=== PATIENT | male | born 1970 | race Two or more races ===

== ENCOUNTER → 2016-10-09 | Day surgery (SDC) | payer MEDICAID ==
[~2016-10-09] MED LIST: BUPR100T4 PO; CLON0.1T PO; CYAN1TAB24; LOSA100T3 PO; OMEP40CA2 PO; PRAV10TA PO; SERT-132 PO
[2016-10-09 06:35] VITALS: BP 138/80; PULSE 64; RESP 20; TEMP 98.3; O2SAT 97
== END | disposition home or self-care (01) ==
LOC: PHSDC 06:08
PROVIDERS: ATTEND Specialist
DX: G56.02 Carpal tunnel syndrome, left upper limb (principal); R21 Rash and other nonspecific skin eruption; Z53.09 Procedure and treatment not carried out because of other contraindication
CPT/HCPCS: 99211

== ENCOUNTER → 2016-10-16 | Day surgery (SDC) | payer MEDICAID ==
[~2016-10-16] VITALS: Ht 182.9 cm; Wt 129.5 kg
[~2016-10-16] MED LIST changes: +BUPIVACAINE HCL PF 0.5% 30 ML VIAL ONE; +CHLORHEXIDINE GLUCONATE 2 % 1 PACK (2 CLOTHS) TOPICAL PRN; +DEXT 5%-NACL 0.45% 1000 ML INJ 1,000 ML IV SCH; +FAMOTIDINE 20 MG/2 ML VIAL ONE; +IBUP800T23 PO; +IBUPROFEN 800 MG TAB ONE; +INSULIN HUMAN REGULAR 1,000 UNITS/10 ML VIAL SQ PRN; +LACTATED RINGER'S 1000 ML INJ 1,000 ML ONE; +LACTATED RINGER'S 1000 ML IV PRN; +METOPROLOL TARTRATE 25 MG TAB PO PRN; +MIDAZOLAM HCL 5 MG/ML VIAL (1 ML) ONE; +NORC5TAB PO; +ONDANSETRON HCL 4 MG/2 ML VIAL IV PUSH ONE; +POVIDONE IODINE 5% (ANTISEPSIS KIT) 4 APPLICATIONS EACH NARE PRN; +PROPOFOL 200 MG/20 ML AMP IV ONE; +SODIUM CHLORID 0.9% 500 ML IV PRN; +SODIUM CHLORIDE 0.9% FLUSH 5 ML FLUSH IVF PRN; +SODIUM CHLORIDE 0.9% FLUSH 5 ML FLUSH IVF SCH; +ceFAZolin 2 GM PREMIX 50 ML IV SCH; +ceFAZolin 2 GM PREMIX 50 ML ONE
[2016-10-16 09:42] VITALS: BP 142/85; PULSE 67; RESP 16; TEMP 97.5; O2SAT 96
[2016-10-16 09:47] VITALS: PULSE 67
[2016-10-16 10:17] LABS: HEMATOCRIT 44.9 % (39.0-51.0); MEAN CELL VOLUME 89.7 FL (80.0-100.0); MEAN CORPUSCULAR HEMOGLOBIN 29.9 PG (27.0-34.0); MEAN CORPUSCULAR HGB CONC 33.3 % (32.0-36.0); PLATELET COUNT 193 TH/MM3 (150-450); RED BLOOD COUNT 5.01 MIL/MM3 (4.50-5.90); REVIEW FLAG FINAL; WHITE BLOOD COUNT 6.3 TH/MM3 (4.0-11.0)
--- NOTE | 2016-10-16 11:09 | HP.UPD ---
H&P Update Date: Oct 16, 2016 Note The Pre-Admit History and Physical Examination regarding the above named patient was reviewed (including, but not limited to, vital signs, medications, allergies, co-morbid conditions), and upon re-examination it is noted that: Indicated with "X" x - the patient's condition has not significantly changed since the last examination. [] - the patient's condition has changed since the last examination. Changes: Latonia Santana MD Oct 16, 2016 11:08
[2016-10-16 11:35] VITALS: PULSE 62
--- NOTE | 2016-10-16 14:59 | HHI.PR ---
Immediate Post Op Note Procedure Date: Oct 16, 2016 Pre Op Diagnosis: (1) SLAC (scapholunate advanced collapse) wrist (2) Carpal tunnel syndrome Post Op Diagnosis: (1) Carpal tunnel syndrome (2) SLAC (scapholunate advanced collapse) wrist Surgeon: Latonia Santana MD Deputy Fire Chief(s): Nathalia Weiner PA-C Procedure: Open release of left carpal tunnel. Four corner fusion of left wrist with autograft. Complications: n/a Specimen(s) removed: Mass of left wrist. Estimated blood loss: n/a Anesthesia: General, Regional Block Drains: None Tourniquet time (min at mmHg) 147 minutes at 250mmHg Patient to: PACU Patient Condition: Good Implant/Devices: SEE IMPLANT LOG (if applicable) Date/Time of Procedure: SEE SURGICAL CARE RECORD Wen Weiner Oct 16, 2016 14:59
[2016-10-16 15:03] VITALS: PULSE 84; TEMP 97.8
[2016-10-16 15:50] VITALS: PULSE 80
[2016-10-16 16:20] VITALS: BP 135/89; PULSE 74; RESP 16; O2SAT 95
--- NOTE | 2016-10-17 19:14 | MP ---
cc: ADIN MCNEAL MD DATE OF SURGERY 10/16/2016 PREOPERATIVE DIAGNOSIS 1. 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 2. Left carpal tunnel syndrome. POSTOPERATIVE DIAGNOSIS 1. 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 2. Left carpal tunnel syndrome. PROCEDURE 1. Excision of the left carpal scaphoid. 2. Four corner fusion of the left wrist with autograft. 3. Open release of the left carpal tunnel 4. Excision of mass ANESTHESIA General SURGEON Dr. Darcy Mcneal INDICATIONS A 45-year-old male with severe degeneration between the distal radius and the scaphoid. He also had a very tight carpal tunnel. FINDINGS The amount of loss of cartilage and arthritis between the carpal scaphoid and the distal radius was severe. The scaphoid was quite loose. The carpal tunnel was quite tight. In addition, on the ulnar side of the wrist we found a well encapsulated mass which we sent off as a specimen. TOURNIQUET TIME 147 minutes. PROCEDURE IN DETAIL The patient was seen preoperatively where the site and side were identified and marked. The patient was then taken to the operating room, placed in a supine position. His identity was checked against the arm band and the consent form, site and side confirmed, time-out called prior to beginning the procedure. The left upper extremity was prepped with Hibiclens and draped in usual sterile fashion. Just prior to that, the hair was clipped in the area of the operations on the dorsal radial aspect of the wrist. The areas to be incised were outlined with a marking pen as a curvilinear incision on the dorsal aspect of the wrist as well as a longitudinal incision in the palms to the ulnar side of the midline. The arm was exsanguinated and tourniquet inflated to 250 mmHg. Attention was first turned to the area of the carpal tunnel incision where the incision was made down through the skin down to the subcutaneous tissue. Dissection was continued down to the palmar fascia. Distally a small hole was poked in the palmar fascia and, using the ulnar artery as a guide, Guyon's canal was released. The ulnar artery and nerve were retracted ulnarly. The median nerve retracted medially and, using this flexor tendon to the ring finger as a guide, the transverse carpal ligament was divided. Once the forearm fascia was reached, the scissor was kept in a slightly open position and using the push technique divided for approximately 3 cm into the distal forearm. The median nerve was carefully from the roof of the tunnel. Once it was freed up, there was some scar tissue around it and a epidural lysis was performed under loupe magnification. The wound was then closed with a running 4-0 nylon suture. Attention was then turned to the dorsal aspect of the wrist where incision was made as noted above down through the skin down to the subcutaneous tissue. The fourth dorsal compartment was opened and the tendons were retracted exposing the capsule to the dorsal wrist. Mini C-arm was used to locate the capita lunate joint and the capsule was opened in this area. The carpa; scaphoid was then located and removed in piecemeal by the ligamentous attachments and removing the bone using the rongeur. The cancellus bone from the scaphoid was harvested and put aside to be used as autograft. Once the scaphoid was completely removed, attention was turned to the four corners where the cortical cancellus bone was carefully removed from the articulating surfaces of the capitate lunate hamate and triquetrum. an 0.062 wire was then used to reduce the lunate into a neutral position and place the capitate on top of it. Once it was in adequate position, the reamer for the 18-mm plate from the [employer] system was used. The reamer was used to create a seat for the plate and then the bone graft was placed and the plate was placed back into the wound and held in place with two K-wires. Several screws were placed, with into each bone with the position checked with a mini C-arm. Once there was adequate positioning and excellent stabilization, the area was checked. Small pins were removed leaving the four screws in place which were then tightened. Excellent stability was noted. No encumbrance of the plate and good range of motion of the wrist. The area was then copiously irrigated with saline. Capsule was closed with 4-0 Vicryl. The dermis was approximated with 4-0 Vicryl and the skin was approximated with subcuticular 4-0 Prolene. The tourniquet was then released after 147 minutes of tourniquet time. Pressure was applied. After several minutes, there was no evidence of any oozing. A dressing was applied using povidone-iodine ointment, Adaptic, Telfa, fluffy gauze hand wrap and a dorsal splint. The patient was then taken from the operating room to the recovery room in satisfactory condition having tolerated the procedure well. Postop instructions include keeping the arm elevated, keeping it clean and dry and returning next week for follow up. The patient was given an upper extremity block by anesthesia prior to the operation for postoperative pain control. Patient was given prescriptions for ibuprofen and [place]. MD SELENE Gandhi/ /3:27 PM /6:58 PM
== END | disposition home or self-care (01) ==
LOC: PHSDC 09:23
PROVIDERS: ATTEND Specialist
DX: G56.02 Carpal tunnel syndrome, left upper limb (principal); M19.032 Primary osteoarthritis, left wrist; R22.32 Localized swelling, mass and lump, left upper limb
CPT/HCPCS: 01810; 01830; 25210; 25825; 36415; 64450; 64721; 76000; 85027; 88305; C1713; J0690; J2250; J2405; J7120

== ENCOUNTER 2016-12-07 09:00 | Emergency (ER) | payer MEDICAID ==
[~2016-12-07] VITALS: Ht 182.9 cm; Wt 132.0 kg
[~2016-12-07 09:00] MED LIST changes: -BUPIVACAINE HCL PF 0.5% 30 ML VIAL ONE; -CHLORHEXIDINE GLUCONATE 2 % 1 PACK (2 CLOTHS) TOPICAL PRN; -DEXT 5%-NACL 0.45% 1000 ML INJ 1,000 ML IV SCH; -FAMOTIDINE 20 MG/2 ML VIAL ONE; -IBUP800T23 PO; -IBUPROFEN 800 MG TAB ONE; -INSULIN HUMAN REGULAR 1,000 UNITS/10 ML VIAL SQ PRN; -LACTATED RINGER'S 1000 ML INJ 1,000 ML ONE; -LACTATED RINGER'S 1000 ML IV PRN; -METOPROLOL TARTRATE 25 MG TAB PO PRN; -MIDAZOLAM HCL 5 MG/ML VIAL (1 ML) ONE; -NORC5TAB PO; -ONDANSETRON HCL 4 MG/2 ML VIAL IV PUSH ONE; -POVIDONE IODINE 5% (ANTISEPSIS KIT) 4 APPLICATIONS EACH NARE PRN; -PROPOFOL 200 MG/20 ML AMP IV ONE; -SODIUM CHLORID 0.9% 500 ML IV PRN; -SODIUM CHLORIDE 0.9% FLUSH 5 ML FLUSH IVF PRN; -SODIUM CHLORIDE 0.9% FLUSH 5 ML FLUSH IVF SCH; -ceFAZolin 2 GM PREMIX 50 ML IV SCH; -ceFAZolin 2 GM PREMIX 50 ML ONE
[2016-12-07 09:03] VITALS: BP 158/95; PULSE 72; RESP 16; TEMP 98; O2SAT 96
--- NOTE | 2016-12-07 09:20 | PD ---
HPI Chief Complaint: Skin Problem Time Seen by Provider: 09:13 Travel History International Travel<30 days: No Contact w/Intl Traveler<30days: No Traveled to known affect area: No History of Present Illness HPI This patient complains of skin rash. Duration 3 days. Symptoms severity is mild. It is located on his shoulder and anterior chest. Denies any new medications. It gives him a burning type sensation. No fever PFSH Past Medical History Cancer: No Cardiovascular Problems: No Diabetes: No Endocrine: No Genitourinary: No Hepatitis: No Hiatal Hernia: No Hypertension: Yes Immune Disorder: No Musculoskeletal: Yes (JOINT PAIN AND SWELLING; LIMITED ROM; STIFFNESS;CARPAL TUNNEL SYNDROME) Neurologic: Yes (TINGLIING BILAT HANDS) Psychiatric: Yes (ANXIETY) Reproductive: No Respiratory: Yes (SLEEP APNEA) Thyroid Disease: No Past Surgical History Abdominal Surgery: No AICD: No Body Medical Devices: ANCHORS IN RIGHT SHOULDER Cardiac Surgery: No Ear Surgery: No Endocrine Surgery: No Eye Surgery: No Genitourinary Surgery: No Gynecologic Surgery: No Joint Replacement: No Oral Surgery: No Pacemaker: No Thoracic Surgery: No Other Surgery: Yes Social History Alcohol Use: No Tobacco Use: No Substance Use: No Allergies-Medications (Allergen,Severity, Reaction): Coded Allergies: No Known Allergies (Unverified , 12/07/16) Reported Meds & Prescriptions Reported Meds & Active Scripts Active Reported Sertraline (Sertraline HCl) 50 Mg Tab 50 Mg PO DAILY Bupropion HCl 100 Mg Tab 300 Mg PO HS Losartan-Hydrochlorothiazide 100-12.5 Mg Tab 1 Tab PO DAILY Omeprazole 40 Mg Cap 40 Mg PO DAILY Clonidine (Clonidine HCl) 0.1 Mg Tab 0.1 Mg PO BID Pravastatin 10 Mg Tab 10 Mg PO DAILY B12 (Cyanocobalamin) 1,000 Mcg Tab Review of Systems General / Constitutional: No: Fever HENT: No: Headaches Cardiovascular: No: Chest Pain or Discomfort Respiratory: No: Cough Skin: Positive Rash, Positive Itching Physical Exam Narrative NECK: Symmetrical appearance, midline trachea. No mass or crepitus. Thyroid without enlargement, tenderness, or mass. Psych: Normal mood and affect. Normal insight and judgment. GASTROINTESTINAL: Abdomen soft, non-tender, nondistended. Positive bowel sounds. No hepato-splenomegaly, or palpable masses. No guarding. Skin: Right shoulder and trapezius region and anterior chest. No vesicle or cellulitis or pustules Data Data Last Documented VS Vital Signs Date Time Temp Pulse Resp B/P (MAP) Pulse Ox O2 Delivery O2 Flow Rate FiO2 12/07/16 09:03 98.0 72 16 158/95 (116) 96 MDM Medical Decision Making Medical Screen Exam Complete: Yes Emergency Medical Condition: Yes Medical Record Reviewed: Yes Differential Diagnosis Eczema, dermatitis, allergic reaction Narrative Course I have reviewed the patient's electronic medical record. Does not look bacterial related Prednisone prescribed And use Benadryl as needed Diagnosis Primary Impression: Skin rash Additional Instructions: The patient was advised to follow up with their physician and return if they worsen. Med/Other Pt SpecificInfo: Prescription(s) given Disposition: 01 DISCHARGE HOME Condition: Stable Pedro Delgado MD Dec 07, 2016 09:20
[2016-12-07] MEDS ORDERED: PRED20 PO (09:21)
[2017-01-06] MEDS ORDERED: VOLT1GEL4 TOPICAL (11:46)
[2017-01-18] MEDS ORDERED: IBUP-232 PO (14:03)
== END 2016-12-07 09:26 | disposition home or self-care (01) ==
LOC: PHEFT 09:00
DX: R21 Rash and other nonspecific skin eruption (principal)
CPT/HCPCS: 99283

== ENCOUNTER 2017-05-04 10:17 | Emergency (ER) | payer MEDICAID ==
[~2017-05-04] VITALS: Ht 188 cm; Wt 144.0 kg
[~2017-05-04 10:17] MED LIST changes: +IBUP-232 PO; +VOLT1GEL16 TOPICAL
[2017-05-04 10:19] VITALS: BP 130/75; PULSE 80; RESP 18; TEMP 97.5; O2SAT 95
--- NOTE | 2017-05-04 10:38 | PD ---
HPI Chief Complaint: Flank/Kidney Pain Time Seen by Provider: 10:24 Travel History International Travel<30 days: No Contact w/Intl Traveler<30days: No Traveled to known affect area: No History of Present Illness HPI This 46-year-old male is complaining of right flank pain. His been having this pain for about 2 weeks. It is somewhat intermittent. He cannot say what makes it worse. It seems to be worse at night and worse when he lays back. It lasts for hours at a time. He went to the hospital in [place] and had a CT scan done without contrast. He has the results with him and did not show a kidney stone. Was thought that he had some hepatic steatosis which was unchanged from previous exam. There is no history of trauma. He has not been doing any unusual lifting. He has not had fever or chills. There has not been any weight loss. PFSH Past Medical History Hx Anticoagulant Therapy: No Cancer: No Cardiovascular Problems: Yes (HTN) Diabetes: No Endocrine: No Genitourinary: No Hepatitis: No Hiatal Hernia: No Hypertension: Yes Immune Disorder: No Musculoskeletal: Yes (JOINT PAIN AND SWELLING; LIMITED ROM; STIFFNESS;CARPAL TUNNEL SYNDROME) Neurologic: Yes (TINGLIING BILAT HANDS) Psychiatric: Yes (ANXIETY) Reproductive: No Respiratory: Yes (SLEEP APNEA) Thyroid Disease: No Past Surgical History Abdominal Surgery: No AICD: No Body Medical Devices: ANCHORS IN RIGHT SHOULDER Cardiac Surgery: No Ear Surgery: No Endocrine Surgery: No Eye Surgery: No Genitourinary Surgery: No Gynecologic Surgery: No Joint Replacement: No Oral Surgery: No Pacemaker: No Thoracic Surgery: No Other Surgery: Yes Social History Alcohol Use: No Tobacco Use: No Substance Use: No Allergies-Medications (Allergen,Severity, Reaction): Uncoded Allergies: HIBISCUS PLANTS (Allergy, Severe, 05/04/17) Reported Meds & Prescriptions Reported Meds & Active Scripts Active Ibuprofen 600 Mg Tab 600 Mg PO Q6H PRN Voltaren (Diclofenac Sodium) 1 % Gel..gram. 1 Applic TOPICAL BID PRN Reported Sertraline (Sertraline HCl) 50 Mg Tab 50 Mg PO DAILY Bupropion HCl 100 Mg Tab 300 Mg PO HS Losartan-Hydrochlorothiazide 100-12.5 Mg Tab 1 Tab PO DAILY Omeprazole 40 Mg Cap 40 Mg PO DAILY Clonidine (Clonidine HCl) 0.1 Mg Tab 0.1 Mg PO BID Pravastatin 10 Mg Tab 10 Mg PO DAILY B12 (Cyanocobalamin) 1,000 Mcg Tab 2,500 Review of Systems General / Constitutional: No: Fever, Chills Eyes: No: Diploplia, Blurred Vision HENT: No: Headaches, Vertigo Cardiovascular: No: Chest Pain or Discomfort, Palpitations Gastrointestinal: No: Nausea, Vomiting, Diarrhea, Abdominal Pain Genitourinary: Positive: Flank Pain, No: Urgency, Hematuria Musculoskeletal: No: Myalgias, Arthralgias Skin: No Rash, No Itching Neurologic: No: Weakness Endocrine: No: Heat Intolerance Physical Exam Narrative GENERAL: Well-developed male SKIN: Focused skin assessment warm/dry. HEAD: Atraumatic. Normocephalic. EYES: Pupils equal and round. No scleral icterus. No injection or drainage. ENT: No nasal bleeding or discharge. Mucous membranes pink and moist. NECK: Trachea midline. No JVD. CARDIOVASCULAR: Regular rate and rhythm. No murmur appreciated. RESPIRATORY: No accessory muscle use. Clear to auscultation. Breath sounds equal bilaterally. GASTROINTESTINAL: Abdomen soft, non-tender, nondistended. Hepatic and splenic margins not palpable. There is really no CVA tenderness is side pain is just above the right sacroiliac area MUSCULOSKELETAL: No obvious deformities. No clubbing. No cyanosis. No edema. NEUROLOGICAL: Awake and alert. No obvious cranial nerve deficits. Motor grossly within normal limits. Normal speech. PSYCHIATRIC: Appropriate mood and affect; insight and judgment normal. Data Data Last Documented VS Vital Signs Date Time Temp Pulse Resp B/P (MAP) Pulse Ox O2 Delivery O2 Flow Rate FiO2 05/04/17 10:19 97.5 80 18 130/75 (93) 95 Orders Orders Complete Blood Count With Diff (05/04/17 10:34) Comprehensive Metabolic Panel (05/04/17 10:34) Urinalysis - C+S If Indicated (05/04/17 10:34) Oxycodone-Acetamin 5-325 Mg (Percocet (05/04/17 10:45) Labs Laboratory Tests Test 05/04/17 11:25 05/04/17 11:50 White Blood Count 5.0 TH/MM3 Red Blood Count 4.83 MIL/MM3 Hemoglobin 14.7 GM/DL Hematocrit 43.5 % Mean Corpuscular Volume 90.1 FL Mean Corpuscular Hemoglobin 30.4 PG Mean Corpuscular Hemoglobin Concent 33.8 % Red Cell Distribution Width 11.6 % Platelet Count 193 TH/MM3 Mean Platelet Volume 8.9 FL Neutrophils (%) (Auto) 57.0 % Lymphocytes (%) (Auto) 31.1 % Monocytes (%) (Auto) 8.3 % Eosinophils (%) (Auto) 2.3 % Basophils (%) (Auto) 1.3 % Neutrophils # (Auto) 2.8 TH/MM3 Lymphocytes # (Auto) 1.6 TH/MM3 Monocytes # (Auto) 0.4 TH/MM3 Eosinophils # (Auto) 0.1 TH/MM3 Basophils # (Auto) 0.1 TH/MM3 CBC Comment DIFF FINAL Differential Comment Blood Urea Nitrogen 15 MG/DL Creatinine 0.78 MG/DL Random Glucose 91 MG/DL Total Protein 7.1 GM/DL Albumin 3.8 GM/DL Calcium Level 8.7 MG/DL Alkaline Phosphatase 70 U/L Aspartate Amino Transf (AST/SGOT) 71 U/L Alanine Aminotransferase (ALT/SGPT) 140 U/L Total Bilirubin 0.2 MG/DL Sodium Level 139 MEQ/L Potassium Level 3.8 MEQ/L Chloride Level 104 MEQ/L Carbon Dioxide Level 27.5 MEQ/L Anion Gap 8 MEQ/L Estimat Glomerular Filtration Rate 106 ML/MIN Urine Collection Type CLEAN CATCH Urine Color YELLOW Urine Turbidity CLEAR Urine pH 7.0 Urine Specific [place] 1.022 Urine Protein NEG mg/dL Urine Glucose (UA) NEG mg/dL Urine Ketones NEG mg/dL Urine Occult Blood NEG Urine Nitrite NEG Urine Bilirubin NEG Urine Leukocyte Esterase NEG Urine WBC 0-2 /hpf Urine Squamous Epithelial Cells 0-5 /hpf Urine Bacteria RARE /hpf Microscopic Urinalysis Comment CULT NOT INDICATED MDM Medical Decision Making Medical Screen Exam Complete: Yes Emergency Medical Condition: Yes Medical Record Reviewed: Yes Differential Diagnosis Differential includes musculoskeletal pain, renal colic Narrative Course Urinalysis Is negative. The patient had a negative CT scan done a few days ago and is here with him before. I don't think a repeat CT is warranted with a negative urine. I believe this is musculoskeletal pain. He will be released Diagnosis Primary Impression: Musculoskeletal pain Scripts Oxycodone-Acetaminophen (Percocet) 7.5-325 mg Tab 1 TAB PO Q4H Y for PAIN, #15 TAB 0 Refills Prov: Demetrio Reardon MD 05/04/17 Disposition: 01 DISCHARGE HOME Condition: Stable Demetrio Reardon MD May 04, 2017 10:38
[2017-05-04] MEDS ORDERED: oxyCODONE/ACETAMINOPHEN 5 MG/325 MG TAB PO ONE (10:45)
[2017-05-04 11:37] LABS: AUTOMATED NEUTROPHIL # 2.8 TH/MM3 (1.8-7.7); BASOPHIL # 0.1 TH/MM3 (0-0.2); BASOPHIL % 1.3 % (0.0-2.0); EOSINOPHIL # 0.1 TH/MM3 (0-0.4); EOSINOPHIL % 2.3 % (0.0-4.0); HEMATOCRIT 43.5 % (39.0-51.0); HEMOGLOBIN 14.7 GM/DL (13.0-17.0); LYMPH % 31.1 % (9.0-44.0); LYMPHOCYTE # 1.6 TH/MM3 (1.0-4.8); MEAN CELL VOLUME 90.1 FL (80.0-100.0); MEAN CORPUSCULAR HEMOGLOBIN 30.4 PG (27.0-34.0); MEAN CORPUSCULAR HGB CONC 33.8 % (32.0-36.0); MEAN PLATELET VOLUME 8.9 FL (7.0-11.0); MONO % 8.3 % (0.0-8.0); MONOCYTE # 0.4 TH/MM3 (0-0.9); PLATELET COUNT 193 TH/MM3 (150-450); RED BLOOD COUNT 4.83 MIL/MM3 (4.50-5.90); RED CELL DISTRIBUTION WIDTH 11.6 % (11.6-17.2)
[2017-05-04 11:44] LABS: CHLORIDE 104 MEQ/L (98-107); SODIUM (NA) 139 MEQ/L (136-145)
[2017-05-04 11:47] LABS: ALBUMIN 3.8 GM/DL (3.4-5.0); BICARBONATE 27.5 MEQ/L (21.0-32.0); CALCIUM 8.7 MG/DL (8.5-10.1); GLUCOSE,RANDOM 91 MG/DL (74-106)
[2017-05-04 11:48] LABS: BLOOD UREA NITROGEN 15 MG/DL (7-18)
[2017-05-04 11:50] LABS: ALT (GPT) 140 U/L (12-78); AST (GOT) 71 U/L (15-37)
[2017-05-04 11:51] LABS: CREATININE 0.78 MG/DL (0.60-1.30); GLOMERULAR FILTRATION RATE 106 ML/MIN (>89)
[2017-05-04 11:52] LABS: TOTAL BILIRUBIN ADULT 0.2 MG/DL (0.2-1.0); TOTAL PROTEIN 7.1 GM/DL (6.4-8.2)
[2017-05-04 11:53] LABS: ALKALINE PHOSPHATASE 70 U/L (45-117)
[2017-05-04 12:02] LABS: BILIRUBIN, URINE NEG (NEG); BLOOD, URINE NEG (NEG); GLUCOSE,URINE NEG (NEG); KETONE, URINE NEG (NEG); NITRITE,URINE NEG (NEG); URINE LEUKOCYTE ESTERASE NEG (NEG)
[2017-05-04 12:07] LABS: URINE COLOR YELLOW (YELLW/STRAW)
[2017-05-04 12:08] LABS: SQUAMOUS EPITHELIAL CELL URINE 0-5 /hpf (0-5); WBC, URINE 0-2 /hpf (0-5)
[2017-05-04 12:09] LABS: BACTERIA, URINE RARE /hpf
[2017-05-04] MEDS ORDERED: PERC7.5T13 PO (12:25)
[2017-05-04 12:45] VITALS: BP 152/80
== END 2017-05-04 12:58 | disposition home or self-care (01) ==
LOC: PHED 10:17
DX: M79.1 Myalgia (principal); I10 Essential (primary) hypertension
CPT/HCPCS: 80053; 81001; 85025; 99283